=== PATIENT | male | born 1935 | race African-American/Black ===

== ENCOUNTER 2017-07-06 12:04 | Inpatient (IN) | payer MEDICARE, OTHER ==
[~2017-07-06] VITALS: Ht 180.3 cm; Wt 53.0 kg
[~2017-07-06 12:04] MED LIST: ALEVE220 M2 OR; ARICEPT OR; ARICEPT PO; ARICEPT10 MG OR; BABY ASPIRIN81 MG OR; CEPH500C57 OR; CRESTOR20 MG PO; DIOVAN HCT320 MG/25 OR; DONEPEZIL5 MG PO; GLIMEPIRIDE1 MG PO; GLYBURIDE2.5 MG PO; HYTRIN5 MG OR; JANUMET OR; LEXAPRO10 MG OR; LISINOP/HCTZ1 TA1 OR; LISINOP/HCTZ1 TA2 PO; METFORMIN1000 MG PO; METFORMIN500 M1 OR; METFORMIN500 M2 PO; MULTIVITAM10 PO; NAPROSYN500 MG PO; VIAGRA50 MG PO; [UNRECOGNIZED DRUG - OTHER]
--- NOTE | 2017-07-06 12:15 | NUR ---
PT TO ROOM VIA WHEELCHAIR WITH FAUGHTER.
[2017-07-06] MEDS ORDERED: GLIMEPIRIDE2 MG PO (12:45)
--- NOTE | 2017-07-06 12:49 | NUR ---
Nursing Care Attendant spoke with Dr. Rowe in regards to admitting Patient - Nursing Care Attendant asked MD what diagnosis Patient would be admitted under - MD stated he did not have one at this time and he spoke with family and told them they may have to take Patient home as he would be discharged if tests/procedures returned negative. MD asked medical technical writer if someone from Case Management could come down and speak with family - medical technical writer stated that [employer] would tell family same thing - that Patient would have to self-pay for SNF or [facility] placement. MD stated understanding and thanked medical technical writer for the info. If Patient should develop or produce symptoms/abnormal testing/procedures, appropriate inpatient diagnosis may be obtainable.
[2017-07-06 13:07] LABS: HEMATOCRIT 39.1 % (39.0-50.0); HEMOGLOBIN 12.9 g/dl (14.0-18.0); IMMATURE GRANULOCYTES 0.5 % (0.0-1.0); MEAN CELL VOLUME 96.3 fL CALC (80.0-100.0); MEAN CORPUSCULAR HGB 31.8 pG CALC (26.0-32.0); NEUT# 4.04 thou/uL (1.82-7.42); RED BLOOD COUNT 4.06 mill/uL (4.70-6.10); RED CELL DISTRI WIDTH 13.6 % (11.5-15.5)
[2017-07-06 13:22] LABS: PROTHROMBIN TIME 11.2 SECONDS (9.0-12.5)
[2017-07-06 13:25] LABS: ALBUMIN 3.8 g/dL (3.2-5.0); BILIRUBIN, TOTAL 0.4 mg/dL (0.0-1.4); TOTAL PROTEIN 7.3 g/dL (6.3-8.2)
[2017-07-06 13:34] LABS: CREATININE 3.6 mg/dL (0.7-1.3); POTASSIUM 3.4 mmol/l (3.5-5.1)
--- NOTE | 2017-07-06 13:41 | NUR ---
FAMILY UPDATED ON FINDINGS KNOWN THUS FAR. PT ARA CLEMENT.
--- NOTE | 2017-07-06 14:08 | NUR ---
SHANNAN spoke with regarding admission status. SHANNAN advised that the renal function will qualify for IP and asked if the diagnosis is MIGUEL and her confirmed that and will admitt as IP.
[2017-07-06 14:17] LABS: URINE BILIRUBIN - DIPSTICK NEGATIVE (NEGATIVE); URINE BLOOD DIPSTICK SMALL (NEGATIVE); URINE COLOR YELLOW; URINE GLUCOSE - DIPSTICK 100 mg/dL (NEGATIVE); URINE KETONE NEGATIVE (NEGATIVE); URINE LEUK ESTERASE NEGATIVE (NEGATIVE); URINE NITRITE - DIPSTICK NEGATIVE (Negative); URINE PROTEIN - DIPSTICK TRACE mg/dL (NEG-TRACE); URINE UROBILINOGEN - DIPSTICK 0.2 E.U./dL (0.2)
[2017-07-06 14:22] LABS: URINE CLARITY SL CLOUDY; URINE RBC 0-2 RBC/hpf (0-5)
[2017-07-06 14:24] LABS: BARBITURATES NEGATIVE (NEGATIVE); COCAINE NEGATIVE (NEGATIVE); METHADONE NEGATIVE (NEGATIVE); OXCYCODONE NEGATIVE (NEGATIVE); TETRAHYDROCANNABIONOL NEGATIVE (NEGATIVE); TRICYLIC ANTIDEPRESSANTS NEGATIVE (NEGATIVE)
--- NOTE | 2017-07-06 14:24 | NUR ---
FAMILY UPDATED ON RESULTS FROM LABS, AWARE OF PENDING ADMISSION.
--- NOTE | 2017-07-06 15:30 | NUR ---
PT WITH SIGNIFICANT DEMENTIA, ALONG WITH HARDNESS OF HEARING, REQUIRES FREQUENT REDIRECTION. PT IS AMBULATORY TO BR WITH STEADY GAIT.
--- NOTE | 2017-07-06 15:57 | NUR ---
male pt received to med surg room 281 via wc accompanied by daughter in stable condition; able to stand for weight; admission assessment completed at this time; pt is a poor historian and very [place]; daughter to assist with admission; pt alert to person only; pupils reactive; lungs clear/coarse bases; skin color wnl; ra; hr reg; weak pulses; no edema noted; abd soft with bs present; no bm noted per leader writer; no urine to inspect at this time; urinal provided; pt with urine odor; pants removed for assessment of coccyx/sacrum; pt refusing to allow pants to stay off; #22 in lw saline locked; flushed and patent; no redness or edema noted at site; plan of care/ meds explained to family; pt oriented to bed and call light system; bed alarm placed for pt safety; call light within reach; will continue to monitor
--- NOTE | 2017-07-06 16:02 | NUR ---
REPORT CALLED TO ERIN MAGANA. PT TAKEN TO ROOM 281 WITHOUT INCIDENT, ACCOMPANIED BY HER DAUGHTER.
[2017-07-06 16:53] VITALS: BP 122/62
[2017-07-06 19:22] VITALS: BP 96/63
--- NOTE | 2017-07-06 22:38 | NUR ---
PT.MEDICATED ORDERS PROVIDE. PT.IS IN BED W/LIGHTS DOWN LOW AND TV ON. PT.IS VERY HARD OF HEARING. ASSESSMENT COMPLETED AT THIS TIME. DENIES ANY PAIN. NO S/S OF DISTRESS. PT.IS CONFUSED HIS LOCATION AND SITUATION, BUT IS CALM. CALL LIGHT IS AT BEDSIDE AND PT.REMINDED HOW TO CALL FOR ASSISTANCE BEFORE GETTING UP. BED ALARM IN PLACE.
--- NOTE | 2017-07-07 01:32 | NUR ---
PT.IS SLEEPING AT THIS TIME. TV AND LIGHTS ARE OFF. BED ALARM ON. NO S/S OF DISTRESS NOTED AT THIS TIME. WILL CONTINUE TO MONITOR.
[2017-07-07 03:51] VITALS: BP 107/64
--- NOTE | 2017-07-07 05:20 | NUR ---
PT.UP TO RESTROOM AND BACK TO BED. IV FLUIDS REPLENISHED. PT.REQUESTING SNACK/PROVIDED. DENIES PAIN. CALL LIGHT AT BEDSIDE.
[2017-07-07 05:21] LABS: HEMATOCRIT 33.3 % (39.0-50.0); MEAN CELL VOLUME 97.1 fL CALC (80.0-100.0); MEAN CORPUSCULAR HGB 31.8 pG CALC (26.0-32.0); MEAN CORPUSCULAR HGB CONC 32.7 g/L CALC (32.0-36.0); RED BLOOD COUNT 3.43 mill/uL (4.70-6.10); RED CELL DISTRI WIDTH 13.6 % (11.5-15.5)
[2017-07-07 05:22] LABS: HEMOGLOBIN 10.9 g/dl (14.0-18.0)
[2017-07-07 05:36] LABS: BILIRUBIN, TOTAL 0.2 mg/dL (0.0-1.4); CREATININE 2.7 mg/dL (0.7-1.3); MAGNESIUM 1.9 mg/dL (1.6-2.3)
[2017-07-07 05:38] LABS: TOTAL PROTEIN 5.8 g/dL (6.3-8.2)
[2017-07-07 05:39] LABS: POTASSIUM 4.1 mmol/l (3.5-5.1)
--- NOTE | 2017-07-07 07:05 | NUR ---
REPORT RECEIVED FROM CHINO CASTREJON;PT AMBULATING THE HALLWAYS WITH 1 PERSON ASSIST AND UNSTEADY GAIT;INTRODUCED SELF TO PT AND POC DISCUSSED;IV SITE PATENT;PO FLUIDS ENCOURAGED;BED ALARM TO BE PLACED FOR PT SAFETY;FALL PRECAUTIONS;WILL CONTINUE TO MONITOR
[2017-07-07 08:19] VITALS: BP 148/71
--- NOTE | 2017-07-07 08:20 | NUR ---
PT OOB RESTING IN RECLINER EATING BREAKFAST;VS OBTAINED AND ASSESSMENT COMPLETED;RESPIRATIONS EVEN AND UNLABORED ON RA,CLEAR LUNG SOUNDS NOTED;ABDOMEN SOFT ON PALPATION AND ACTIVE IN ALL 4 QUADRANTS;#22G TO RIGHT WRIST INFUSING 0.45% NS @ 100ML/HR,SITE APPEARS HEALTHY;PT DENIES ANY PAIN OR DISCOMFORTS;SKIN INTACT;NICOTINE PATCH PLACED TO LEFT SHOULDER;PT ALERT X2,RE-ORIENTED ACCORDINGLY;BED ALARM IN PLACE FOR PT SAFETY;ENCOURAGED TO CALL FOR ASSISTANCE IF NEEDED;CALL LIGHT IN REACH;WILL CONTINUE TO MONITOR
--- NOTE | 2017-07-07 09:00 | NUR ---
PT OOB RESTING IN WC SITTING AT HALLWAY WINDOW WITH DAUGHTER AT SIDE
[2017-07-07 11:56] VITALS: BP 139/70
--- NOTE | 2017-07-07 12:05 | NUR ---
PT RESTING IN RECLINER WITH FAMILY AT BEDSIDE;DENIES ANY PAIN OR DISCOMFORTS;RESPIRATIONS EVEN AND UNLABORED ON RA; NOTIFIED OF PT CURRENT BS OF 403,NO NEW ORDERS RECEIVED AT THIS TIME;IV SITE PATENT;PO FLUIDS ENCOURAGED;FALL PRECAUTIONS IN PLACE WITH CALL LIGHT IN REACH;WILL CONTINUE TO MONTIOR
--- NOTE | 2017-07-07 16:00 | NUR ---
PT OOB RESTING IN WHEELCHAIR NAVIGATING AROUND THE UNIT;PT DENIES ANY PAIN OR NEEDS;RESPIRATIONS EVEN AND UNLABORED ON RA;IV SITE PATENT;FALL PRECAUTIONS IN PLACE;WILL CONTINUE TO MONITOR
[2017-07-07 17:03] VITALS: BP 124/55
--- NOTE | 2017-07-07 17:35 | NUR ---
PT RESTLESS,PUTTING ON CLOTHING AND PULLING OUT IV SITE STATING "IM LEAVING THIS PLACE! THANKS FOR EVERYTHING!";PT DAUGHTER HESHAM CALLED AND SPOKE WITH PT ON THE PHONE;PT AGREES TO STAY;#22G TO RIGHT WRIST STARTED AT THIS TIME,SITE APPEARS HEALTHY;PRN ATIVAN 0.5MG IVP TO BE ADMINISTERED FOR AGITATION;PT RE-POSITIONED INTO RECLINER AND DINNER PROVIDED;PT DENIES ANY OTHER CURRENT NEEDS;BED ALARM REMAINS IN PLACE FOR SAFETY;CALL LIGHT IN REACH WILL CONTINUE TO MONITOR
--- NOTE | 2017-07-07 19:26 | NUR ---
REPORT RECEIVED FROM DAY NURSE. PT.IS IN HALLWAY IN WHEELCHAIR LOOKING OUT WINDOW AT THE END OF THE [place]PH[place]. PT.BECAME AGITATED WANTING TO GO OUTSIDE. HE NOW SEEMS SATISFIED SITTING AT WINDOW. ALARM IS ATTACHED W/TENSION AND PUBLIC TRANSIT BUS DRIVER IS MONITORING. PT HAS BEEN MEDICATED FOR AGITATION.
[2017-07-07 19:30] VITALS: BP 142/68
--- NOTE | 2017-07-07 20:15 | NUR ---
PT.IS SITTING IN RECLINER IN ROOM WATCHING TV W/ALARM ON. PT.ASSESSED, SENOROUS LUNG SOUNDS, ABD SOFT/NON-TENDER. PT.IS EXTREMELY HARD OF HEARING, ALMOST TO THE POINT OF HENDERING COMMUNICATION/UNDERSTANDING. NO S/S OF DISTRESS OR PAIN AT THIS TIME. CALL LIGHT IS AT PT.SIDE AND HE DENIES ANY NEEDS AT THIS TIME.
--- NOTE | 2017-07-07 20:50 | NUR ---
PT.WAS CONFUSED AND PULLED HIS IV OUT. WILL ATTEMPT NEW IV SITE ACCESS.
--- NOTE | 2017-07-07 23:08 | NUR ---
NEW IV SITE ACCESSED BY ANJELICA BUILDING CONSTRUCTION TEACHER. PT.TOLERATED WELL. 22 IN RFA W/IV FLUIDS RUNNING NS@100
--- NOTE | 2017-07-08 03:57 | NUR ---
PT.SOUNDED BED ALARM, HE WAS ATTEMPTING TO GET UP TO RESTROOM. PT.WAS CONFUSED ABOUT CIRCUMSTANCES. HE WAS SOILED OF URINATION ON HIS PANTS AND INSISTED ON USE OF TOILET MISSING TOILET AND URINATING ON WALL IN RESTROOM AND FLOOR. THIS IS THE 3RD TIME THIS HAS HAPPENED. HE IS REFUSING USE OF URINAL. HOUSE-KEEPING HAS BEEN CALLED. PT.HAS BEEN PLACED IN SHOWER AND LAB AID IS ASSISTING HIM IN BATHING. BEDDING CHANGED AT THIS TIME.
[2017-07-08 04:30] VITALS: BP 131/74
--- NOTE | 2017-07-08 05:09 | NUR ---
PT.AMBULATED TO BSC W/ASSISTANCE. 500CC OF CLEAR YELLOW URINE OUTPUT. ROOM COOLED AND BLANKET REMOVED/LEFT W/SHEET FOR COMFORT. PT. DENIES ANY OTHER NEEDS AT THIS TIME, CALL LIGHT IS AT SIDE.
--- NOTE | 2017-07-08 05:12 | NUR ---
PT.IS SLEEPING AT THIS TIME. NO S/S OF DISTRESS NOTED. WILL CONTINUE TO MONITOR. BED ALARM ON AND CALL LIGHT AT SIDE.
[2017-07-08 05:19] LABS: HEMATOCRIT 33.8 % (39.0-50.0); MEAN CELL VOLUME 99.7 fL CALC (80.0-100.0); MEAN CORPUSCULAR HGB 32.4 pG CALC (26.0-32.0); MEAN CORPUSCULAR HGB CONC 32.5 g/L CALC (32.0-36.0); RED BLOOD COUNT 3.39 mill/uL (4.70-6.10); RED CELL DISTRI WIDTH 13.7 % (11.5-15.5)
[2017-07-08 05:33] LABS: ALBUMIN 3.2 g/dL (3.2-5.0); CREATININE 2.1 mg/dL (0.7-1.3); MAGNESIUM 1.9 mg/dL (1.6-2.3); POTASSIUM 4.2 mmol/l (3.5-5.1)
--- NOTE | 2017-07-08 07:05 | NUR ---
REPORT RECEIVED FROM CHINO CASTREJON;PT APPEARS TO BE SLEEPING IN SUPINE POSITION;NO S/S OF DISTRESS NOTED;RESPIRATIONS EVEN AND UNLABORED ON RA;TELE MONITOR IN PLACE;IV SITE PATENT;BED ALARM ON FOR PT SAFETY;BED IN THE LOWEST POSITION WITH CALL LIGHT IN REACH;WILL CONTINUE TO MONITOR
[2017-07-08 08:08] VITALS: BP 138/80
--- NOTE | 2017-07-08 08:10 | NUR ---
PT OOB RESTING IN RECLINER EATING BREAKFAST;PT ALERT TO SELF AND PLACE,WILL RE-ORIENT ACCORDINGLY;VS OBTAINED AND ASSESSMENT COMPLETED;RESPIRATIONS EVEN AND UNLABORED ON RA;ABDOMEN SOFT ON PALPATION AND ACTIVE IN ALL 4 QUADRANTS;#22G TO RIGHT FOREARM INFUSING NS @ 75ML/HR,SITE APPEARS HEALTHY AND IS SECURED WITH COBAN;SKIN INTACT;NICOTINE PATCH APPLIED TO LEFT SHOULDER;PO FLUIDS PROVIDED AND PT ENCOURAGED TO CALL FOR ASSISTANCE WITH AMBULATION;BED ALARM IN PLACE FOR PT SAFETY;FALL PRECAUTIONS;CALL LIGHT IN REACH;WILL CONTINUE TO MONITOR
--- NOTE | 2017-07-08 11:25 | NUR ---
PT RESTING IN RECLINER,PLEASANT;DENIES ANY CURRENT PAIN OR NEEDS;RESPIRATIONS EVEN AN UNLABORED ON RA;IV SITE PATENT TO RIGHT FOREARM;BED ALARM REMAINS IN PLACE FOR PT SAFETY;ENCOURAGED TO CALL FOR ASSISTANCE IF NEEDED;CALL LIGHT IN REACH;WILL CONTINUE TO MONITOR
[2017-07-08 15:13] VITALS: BP 143/72
--- NOTE | 2017-07-08 16:25 | NUR ---
PT OOB RESTING IN RECLINER WATCHING TV;IV SITE PATENT INFUSING NS @ 75ML/HR;RESPIRATIONS EVEN AND UNLABORED ON RA;PT DENIES ANY PAIN OR NEEDS;BED ALARM IN PLACE;PO FLUIDS RE-ENCOURAGED;CALL LIGHT IN REACH;WILL CONTINUE TO MONITOR
--- NOTE | 2017-07-08 17:30 | NUR ---
PT SET OFF BED ALARM,UPON ENTERING THE ROOM PT FOUND AMBULATING,IV SITE FOUND ON THE FLOOR WITH CATHETER INTACT;PT RE-ORIENTED AND RE-POSITIONED BACK INTO BED;NEW #22G STARTED TO LAC ON FIRST ATTEMPT,PT TOLERATED WELL;ENCOURAGED TO CALL FOR ASSISTANCE WITH AMBULATION;BED ALARM IN PLACE;WILL CONTINUE TO MONITOR
--- NOTE | 2017-07-08 18:25 | NUR ---
PT MEDICATED WITH ATIVAN 0.5MG IVP FOR AGITATION;PT CONTINUES TO AMBULATE THE HALLWAYS WITHOUT ASSISTANCE AND BECOMES AGITATED WITH STAFF MEMBERS WHEN OFFERING ASSISTANCE;WILL CONTINUE TO MONITOR
[2017-07-08 19:05] VITALS: BP 146/79
--- NOTE | 2017-07-08 19:13 | NUR ---
PT REMOVED 2ND IV SITE,CALL PLACED TO AT THIS TIME;AWAITING CALL BACK
--- NOTE | 2017-07-08 19:35 | NUR ---
PT.SOUNDED ALARM, HE WAS GETTING UP OUT OF THE RECLINER HEADING FOR THE RESTROOM, PT.WAS INCONTINENT OF URINE AND NEEDED TO BE CLEANED AND PROVIDED EDIN-CARE. PT.HAD PULLED IV OUT AND FLUIDS WERE RUNNING ONTO FLOOR. PHYSICIAN NOTIFIED AND ORDERS PROVIDED FOR IV FLUIDS TO BE D.C'D AND ATIVAN CHANGED TO PO. PT.WAS LEFT TUCKED INTO BED STATING "I WANT TO REST NOW." BED ALARM ON AND PT.ASSISTED W/PO FLUIDS. PT.REORIENTED TO CALL LIGHT AND IT IS PLACED NEXT TO HIS HAND ON BEDRAIL. LIGHTS LOW AND DOOR OPEN. BED IN LOWEST POSITION.
--- NOTE | 2017-07-09 00:05 | NUR ---
PT.SOUNDED BED ALARM, UPON ENTERING ROOM PT.WAS ATTEMPTING TO GET UP STATING HE NEEDS TO USE THE RESTROOM. PT SELF AMBULATED WITH STAND-BY ASSISTANCE. VERY UNSTEADY GAIT. INCONTINENT OF URINE ACROSS ROOM FLOOR, BUT FINISHED URINATING IN TOILET. ATTEMPTS TO HAVE PT.USE URINAL HAVE FAILED DUE TO CONFUSION. PT.IS LOC TO SELF ONLY. BED ALARM IS ON AND CALL LIGHT ON SIDE OF BED RAILING W/IN VIEW AND REACH.
[2017-07-09 04:13] VITALS: BP 157/79
--- NOTE | 2017-07-09 04:55 | NUR ---
BED ALARM SOUNDED, PT.ASSISTED TO RESTROOM AND BACK TO BED. BED ALARM ON. PT.ASSISTED IN DRINKING PO FLUIDS. DENIES ANY PAIN OR DISCOMFORT.
[2017-07-09 05:41] LABS: ALBUMIN 2.7 g/dL (3.2-5.0); CREATININE 1.9 mg/dL (0.7-1.3); MAGNESIUM 1.6 mg/dL (1.6-2.3); POTASSIUM 3.7 mmol/l (3.5-5.1)
--- NOTE | 2017-07-09 06:00 | NUR ---
PT.IS IN BED W/LIGHTS OUT APPEARS TO BE SLEEPING. NO S/S OF DISTRESS AT THIS TIME. CALL LIGHT IS ON SIDE BED RAIL AND BED ALARM ATTACHED TO PT.
--- NOTE | 2017-07-09 07:00 | NUR ---
RECEIVED BEDSIDE REPORT FROM CASH MAGANA. RESTING ON RIGHT SIDE WITH EYES CLOSED, AWAKENS EASILY. RESPS EVEN AND UNLABORED ON ROOM AIR. RESPS EVEN AND UNABORED ON ROOM AIR. DENIES PAIN OR DISCOMFORT. PLAN OF CARE DISCUSSED. SAFETY PRECAUTIONS REINFORCED. BED ALARM ON FOR SAFETY. BED IN LOWEST POSITION WITH WHEELS LOCKED. CALL LIGHT WITHIN REACH. ENCOURAGED PT TO CALL FOR ANY NEEDS.
[2017-07-09 08:06] LABS: CHOLESTEROL HDL RATIO 2.7 (<4.4 (CALC))
--- NOTE | 2017-07-09 08:30 | NUR ---
AMBULATING IN HALLWAY WITH PHYSICAL THERAPY.
[2017-07-09 08:39] VITALS: BP 138/77
--- NOTE | 2017-07-09 12:40 | NUR ---
SITTING IN BEDSIDE CHAIR, FAMILY AT BEDSIDE. RESPS EVEN AND UNLABORED ON ROOM AIR. DENIES PAIN OR DISCOMFORT. NO IV SITE. DR ODOM AT BEDSIDE, NEW ORDERS RECEIVED. BED ALARM ON FOR SAFETY. CALL LIGHT WITHIN REACH. WILL CONTINUE TO MONTIOR.
[2017-07-09] MEDS ORDERED: JANUVIA50 MG PO (15:22)
[2017-07-09] MEDS ORDERED: AMLODIPINE BESYL5 MG PO (15:22)
[2017-07-09 15:39] VITALS: BP 98/56
--- NOTE | 2017-07-09 16:05 | NUR ---
SITTING IN BEDSIDE CHAIR, FAMILY AT BEDSIDE. DENIES PAIN OR DISCOMFORT. CALL LIGHT WITHIN REACH, WILL CONTINUE TO MONITOR.
--- NOTE | 2017-07-09 16:17 | NUR ---
Discharge instructions given. Patient verbalizes understanding of same. Discharged in stable condition via Wheelchair to Home with family. All belongings sent with pt.
== END 2017-07-09 16:17 | DRG 683 ==
LOC: ED 12:04 → ED-I 13:57 → ED 15:09 → MS2 15:10
PROVIDERS: Emergency Medicine; Internal Medicine Nephrology; Nurse Practitioner Family; ADMIT Internal Medicine; ATTEND Internal Medicine
DX: N17.9 Acute kidney failure, unspecified (principal); E44.0 Moderate protein-calorie malnutrition; D63.8 Anemia in other chronic diseases classified elsewhere; E86.0 Dehydration; E11.9 Type 2 diabetes mellitus without complications; E87.6 Hypokalemia; Z68.1 Body mass index [BMI] 19.9 or less, adult; F03.90 Unspecified dementia, unspecified severity, without behavioral disturbance, psychotic disturbance, mood disturbance, and anxiety; I10 Essential (primary) hypertension; I25.10 Atherosclerotic heart disease of native coronary artery without angina pectoris; F17.210 Nicotine dependence, cigarettes, uncomplicated; R62.7 Adult failure to thrive; M19.90 Unspecified osteoarthritis, unspecified site; Z79.84 Long term (current) use of oral hypoglycemic drugs
CPT/HCPCS: J2060